=== PATIENT | female | born 1970 | race African-American/Black ===

== ENCOUNTER 2018-03-19 18:21 | Emergency (ER) | payer OTHER ==
[~2018-03-19] VITALS: Ht 170.2 cm; Wt 93.2 kg
[~2018-03-19 18:21] MED LIST: ASPI-1182 PO; ATOR10TA84 PO; CARV3 PO; CIPR-278 PO; FURO40 PO; LISI-661 PO; PARO10OR3 PO; SLOWK8 PO
[2018-03-19] MEDS ORDERED: RIVA10 PO (18:27)
[2018-03-19 18:49] LABS: GLUCOSE,POINT OF CARE 220 MG/DL (70-110)
[2018-03-19] MEDS ORDERED: KETOROLAC TROMETHAMINE 30 MG/ML VIAL IVP ONE (19:15)
[2018-03-19] MEDS ORDERED: LISI-662 PO (19:17)
[2018-03-19] MEDS ORDERED: CARV6 PO (19:17)
[2018-03-19] MEDS ORDERED: PARO20TA24 PO (19:17)
[2018-03-19 19:49] LABS: BASOPHILS % (AUTO) 1.4 % (0.0-2.0); EOSINOPHILS % (AUTO) 5.9 % (1.0-6.0); HEMATOCRIT 36.7 % (36-46); HEMOGLOBIN 12.6 g/dL (12.0-16.0); LYMPHOCYTES % (AUTO) 18.7 % (22.0-44.0); MEAN CORPUSCULAR HEMOGLOBIN 30.7 pg (26.0-34.0); MEAN CORPUSCULAR HGB CONC 34.4 G/dL (31.0-37.0); MEAN CORPUSCULAR VOLUME 89 fL (80-100); MONOCYTES # (AUTO) 1.6 K/uL (0.1-1.0); MONOCYTES % (AUTO) 15.2 % (2.0-9.0); NEUTROPHILS # (AUTO) 6.3 K/uL (1.8-7.7); NEUTROPHILS % (AUTO) 58.8 % (40.0-70.0); PLATELET COUNT (AUTO) 272 K/uL (150-450); RED BLOOD CELL COUNT(AUTO) 4.11 MIL/uL (4.00-5.20); RED CELL DISTRIBUTION WIDTH 15.4 % (11.5-14.5)
[2018-03-19 20:07] LABS: LACTIC ACID 1.8 mmol/L (0.4-2.0)
[2018-03-19] MEDS ORDERED: IPRATROPIUM BROMIDE 0.5 MG/2.5 ML NEB SOLUTION NEB ONE (20:15)
[2018-03-19] MEDS ORDERED: ALBUTEROL SULFATE 2.5 MG/0.5 ML NEB SOLUTION NEB ONE (20:15)
[2018-03-19] MEDS ORDERED: MORPHINE SULFATE 4 MG/ML SYRINGE IVP ONE (20:15)
[2018-03-19] MEDS ORDERED: 0.9% SODIUM CHLORIDE 5 ML NEB SOLUTION NEB ONE (20:15)
[2018-03-19 20:16] LABS: INFLUENZA TYPE A NEGATIVE FOR TYPE A (NEGATIVE); INFLUENZA TYPE B NEGATIVE FOR TYPE B (NEGATIVE)
[2018-03-19 20:16] LABS: CALCIUM, TOTAL 8.3 mg/dL (8.8-10.5); CREATININE 1.43 mg/dL (0.60-1.30); POTASSIUM 3.8 mmol/L (3.5-5.1)
[2018-03-19 20:21] LABS: ALBUMIN 2.7 g/dL (3.4-5.0); BILIRUBIN,TOTAL 0.4 mg/dL (0.1-1.0); TOTAL PROTEIN, SERUM 6.2 g/dL (6.4-8.2)
[2018-03-19 21:19] VITALS: BP 106/69
== END 2018-03-19 22:05 | disposition home or self-care (01) ==
LOC: EMS 18:23
DX: J40 Bronchitis, not specified as acute or chronic (principal); I50.9 Heart failure, unspecified; Z79.899 Other long term (current) drug therapy; Z79.82 Long term (current) use of aspirin
CPT/HCPCS: 36415; 71046; 80053; 82962; 83605; 83880; 84484; 85025; 87040; 87804; 93005; 94640; 96374; 96375; 99284; J1885; J2270

== ENCOUNTER 2019-05-20 13:08 | Inpatient (IN) | payer OTHER ==
[~2019-05-20] VITALS: Ht 170.2 cm; Wt 103.7 kg
[~2019-05-20 13:08] MED LIST changes: +ASPI-1111 PO; -ASPI-1182 PO; -CARV3 PO; +CARV6 PO; -CIPR-278 PO; -LISI-661 PO; +LISI-662 PO; -PARO10OR3 PO; +PARO20TA24 PO; +RIVA10 PO
[2019-05-20] MEDS ORDERED: OMEG-135 PO (13:17)
[2019-05-20] MEDS ORDERED: BUME1TAB34 PO ×2 (13:17→14:08)
[2019-05-20] MEDS ORDERED: METF-960 PO ×2 (13:17→14:08)
[2019-05-20] MEDS ORDERED: IOVERSOL 350 MG/ML 100 ML VIAL ONE (13:26)
[2019-05-20] MEDS ORDERED: SODIUM CHLORIDE 0.9% 0 ML ONE (13:26)
[2019-05-20 13:33] LABS: BASOPHILS % (AUTO) 0.9 % (0.0-2.0); EOSINOPHILS % (AUTO) 4.8 % (1.0-6.0); HEMATOCRIT 46.4 % (36-46); HEMOGLOBIN 15.6 g/dL (12.0-16.0); LYMPHOCYTES # (AUTO) 3.1 K/uL (1.0-4.8); MEAN CORPUSCULAR HGB CONC 33.5 G/dL (31.0-37.0); MEAN CORPUSCULAR VOLUME 87 fL (80-100); MONOCYTES # (AUTO) 0.8 K/uL (0.1-1.0); MONOCYTES % (AUTO) 7.2 % (2.0-9.0); NEUTROPHILS # (AUTO) 6.5 K/uL (1.8-7.7); NEUTROPHILS % (AUTO) 59.1 % (40.0-70.0); PLATELET COUNT (AUTO) 237 K/uL (150-450); RED BLOOD CELL COUNT(AUTO) 5.36 MIL/uL (4.00-5.20); RED CELL DISTRIBUTION WIDTH 14.8 % (11.5-14.5)
[2019-05-20 13:41] LABS: CREATININE 1.48 mg/dL (0.60-1.30); POTASSIUM 4.5 mmol/L (3.5-5.1)
[2019-05-20 13:47] LABS: ALBUMIN 3.3 g/dL (3.4-5.0); BILIRUBIN,TOTAL 0.7 mg/dL (0.1-1.0); TOTAL PROTEIN, SERUM 7.2 g/dL (6.4-8.2)
[2019-05-20 13:53] LABS: PROTHROMBIN TIME 10.4 SEC (9.4-11.6)
[2019-05-20 14:08] LABS: B-TYPE NATRIURETIC PEPTIDE 49 pg/mL (0-100)
[2019-05-20] MEDS ORDERED: SACU1TAB7 PO (14:08)
[2019-05-20] MEDS ORDERED: CARV25 PO (14:08)
[2019-05-20] MEDS ORDERED: ISOS10TA16 PO (14:09)
[2019-05-20] MEDS ORDERED: DIGO125T84 PO (14:09)
[2019-05-20 15:03] LABS: APPEARANCE,URINE TURBID (CLEAR); BILIRUBIN,URINE NEGATIVE (NEGATIVE); GLUCOSE, URINE (UA) >=1000 mg/dL (NEGATIVE); KETONES,URINE NEGATIVE (NEGATIVE); LEUKOCYTE ESTERASE ,URINE SMALL (NEGATIVE); NITRATE,URINE NEGATIVE (NEGATIVE); OCCULT BLOOD,URINE NEGATIVE (NEGATIVE); PH,URINE 5.5 (5.0-8.0); PROTEIN,URINE POS 1+ (NEGATIVE); UROBILINOGEN,URINE 0.2 mg/dL (<=1.0)
[2019-05-20 15:08] LABS: BACTERIA,URINE Moderate /HPF (None Seen); RBC,URINE 0-2 /HPF (0-2); SQUAMOUS EPITHELIAL CELL,UR Many /LPF (None Seen)
[2019-05-20] MEDS ORDERED: SACU1TAB PO (15:09)
[2019-05-20] MEDS ORDERED: FISH1 PO (15:09)
[2019-05-20] MEDS ORDERED: LATA2.5D2 OU (15:09)
[2019-05-20] MEDS ORDERED: ATOR40TA71 PO (15:09)
[2019-05-20 15:12] LABS: AMPHET/METH SCREEN,URINE POSITIVE (NEGATIVE); BARBITURATE SCREEN, URINE NEGATIVE (NEGATIVE); BENZODIAZEPINES SCREEN,URINE NEGATIVE (NEGATIVE); CANNABINOID SCREEN,URINE NEGATIVE (NEGATIVE); COCAINE SCREEN,URINE NEGATIVE (NEGATIVE); METHADONE SCREEN, URINE NEGATIVE (NEGATIVE); OPIATE SCREEN,URINE NEGATIVE (NEGATIVE)
[2019-05-20] MEDS ORDERED: ASPIRIN 325 MG TABLET PO ONE (15:15)
[2019-05-20 15:20] LABS: PHENCYCLIDINE SCREEN,URINE NEGATIVE (NEGATIVE)
[2019-05-20 15:33] LABS: DIGOXIN 0.67 ng/mL (0.90-2.00)
[2019-05-20] MEDS ORDERED: ONDANSETRON HCL 4 MG/2 ML VIAL IVP PRN (16:15)
[2019-05-20] MEDS ORDERED: 0.9% SODIUM CHLORIDE 10 ML SYRINGE IVP PRN (16:15)
[2019-05-20] MEDS ORDERED: ACETAMINOPHEN 325 MG TABLET PO PRN ×2 (16:15→17:00)
[2019-05-20] MEDS ORDERED: LORazepam 1 MG TABLET PO PRN (17:00)
[2019-05-20] MEDS ORDERED: OxyCODONE HCL/ACETAMINOPHEN 5-325 MG TABLET PO PRN (17:00)
[2019-05-20] MEDS ORDERED: DEXTROSE 50%-WATER 25 GM/50 ML SYRINGE IVP PRN (17:00)
[2019-05-20 17:03] VITALS: BP 114/84
[2019-05-20] MEDS: ATORVASTATIN CALCIUM 20 MG TABLET PO SCH (18:05)
[2019-05-20] MEDS: INSULIN LISPRO 100 UNITS/ML SQ PRN ×2 (18:20→21:55)
[2019-05-20] MEDS ORDERED: INFLUENZA VIRUS VACCINE QVS 2019-20 (3YR+)/PF 60 MCG/0.5 ML SYRINGE IM ONE (19:15)
[2019-05-20 19:41] VITALS: BP 122/73
[2019-05-20] MEDS: DOCUSATE SODIUM 100 MG CAPSULE PO SCH (21:29)
[2019-05-20] MEDS: HEPARIN SODIUM,PORCINE 5,000 UNITS/ML VIAL SQ SCH (23:55)
[2019-05-21] VITALS (8 sets, daily range): BP systolic 111–131; BP diastolic 52–69
[2019-05-21 02:27] LABS: GLUCOMETER DEV NAME(LOC) 5N.1; GLUCOSE,POINT OF CARE 171 MG/DL (70-110)
[2019-05-21 02:27] LABS: GLUCOMETER DEV NAME(LOC) 5N.2; GLUCOSE,POINT OF CARE 178 MG/DL (70-110)
[2019-05-21] MEDS: INSULIN LISPRO 100 UNITS/ML SQ PRN ×3 (06:49→18:17)
[2019-05-21 08:04] LABS: GLUCOMETER DEV NAME(LOC) 5N.1; GLUCOSE,POINT OF CARE 165 MG/DL (70-110)
[2019-05-21] MEDS: ASPIRIN 325 MG TABLET PO SCH (08:49)
[2019-05-21] MEDS: HEPARIN SODIUM,PORCINE 5,000 UNITS/ML VIAL SQ SCH ×2 (08:49→16:56)
[2019-05-21] MEDS: FAMOTIDINE 20 MG TABLET PO SCH (08:49)
[2019-05-21] MEDS: ATORVASTATIN CALCIUM 20 MG TABLET PO SCH (08:49)
[2019-05-21] MEDS: DOCUSATE SODIUM 100 MG CAPSULE PO SCH ×2 (08:49→21:13)
[2019-05-21 12:54] LABS: GLUCOMETER DEV NAME(LOC) 5N.2; GLUCOSE,POINT OF CARE 290 MG/DL (70-110)
[2019-05-21 18:06] LABS: GLUCOMETER DEV NAME(LOC) 5N.2; GLUCOSE,POINT OF CARE 216 MG/DL (70-110)
[2019-05-21] MEDS: KETOROLAC TROMETHAMINE 15 MG/ML VIAL IVP PRN (21:21)
[2019-05-21 22:01] LABS: GLUCOMETER DEV NAME(LOC) 5N.2; GLUCOSE,POINT OF CARE 185 MG/DL (70-110)
[2019-05-22] MEDS: HEPARIN SODIUM,PORCINE 5,000 UNITS/ML VIAL SQ SCH ×3 (00:33→15:48)
[2019-05-22 04:59] VITALS: BP 138/76
[2019-05-22 06:40] LABS: GLUCOMETER DEV NAME(LOC) 5N.1; GLUCOSE,POINT OF CARE 155 MG/DL (70-110)
[2019-05-22 07:20] VITALS: BP 106/72
[2019-05-22] MEDS: FAMOTIDINE 20 MG TABLET PO SCH (08:13)
[2019-05-22] MEDS: ATORVASTATIN CALCIUM 20 MG TABLET PO SCH (08:13)
[2019-05-22] MEDS: ASPIRIN 325 MG TABLET PO SCH (08:13)
[2019-05-22] MEDS: DOCUSATE SODIUM 100 MG CAPSULE PO SCH (08:13)
[2019-05-22] MEDS: KETOROLAC TROMETHAMINE 15 MG/ML VIAL IVP PRN (08:14)
[2019-05-22] MEDS ORDERED: LIDOCAINE 5% TRANSDERMAL PATCH TD SCH (09:00)
[2019-05-22 10:50] VITALS: BP 128/73
[2019-05-22] MEDS: INSULIN LISPRO 100 UNITS/ML SQ PRN (11:52)
[2019-05-22] MEDS ORDERED: ASPI1CPM8 PO (15:10)
[2019-05-22 15:33] VITALS: BP 125/65
[2019-05-22 18:45] LABS: GLUCOMETER DEV NAME(LOC) 5N.1; GLUCOSE,POINT OF CARE 209 MG/DL (70-110)
[2019-05-22] MEDS ORDERED: -LIDODERM PATCH NOTE- MISC SCH (21:00)
== END 2019-05-22 16:20 | disposition home or self-care (01) | DRG 54 ==
LOC: EMS 13:12 → 5N 16:33
PROVIDERS: ADMIT Internal Medicine; ATTEND Internal Medicine
DX: G43.109 Migraine with aura, not intractable, without status migrainosus (principal); E44.0 Moderate protein-calorie malnutrition; I42.8 Other cardiomyopathies; E11.65 Type 2 diabetes mellitus with hyperglycemia; I50.9 Heart failure, unspecified; I11.0 Hypertensive heart disease with heart failure; F15.10 Other stimulant abuse, uncomplicated; I34.0 Nonrheumatic mitral (valve) insufficiency; Z91.14 Patient's other noncompliance with medication regimen; Z68.35 Body mass index [BMI] 35.0-35.9, adult; Z87.891 Personal history of nicotine dependence; Z95.2 Presence of prosthetic heart valve
CPT/HCPCS: 82947; 86850; 86900; 86901; 87086; 92523; 93005; 93306; 93880; 97116; 97161; 97165; 97530; 97535; 99291; G0480; J1644; J1885; J7050

== ENCOUNTER 2021-02-11 11:31 | Emergency (ER) | payer OTHER ==
[~2021-02-11] VITALS: Ht 170.2 cm; Wt 95.5 kg
[~2021-02-11 11:31] MED LIST changes: -ASPI-1111 PO; +ASPI-1444 PO; +ASPI1CPM8 PO; -ATOR10TA84 PO; +ATOR40TA71 PO; +BUME1TAB34 PO; +CARV25 PO; -CARV6 PO; +DIGO125T84 PO; +FISH1 PO; -FURO40 PO; +ISOS10TA16 PO; +LATA2.5D14 OU; -LISI-662 PO; +METF-1211 PO; -PARO20TA24 PO; -RIVA10 PO; +SACU1TAB PO; -SLOWK8 PO
[2021-02-11] MEDS ORDERED: LORA10TA7 PO (11:59)
[2021-02-11 12:39] LABS: BASOPHILS % (AUTO) 0.9 % (0.0-2.0); EOSINOPHILS % (AUTO) 3.3 % (1.0-6.0); HEMATOCRIT 43.3 % (36-46); HEMOGLOBIN 14.5 g/dL (12.0-16.0); LYMPHOCYTES # (AUTO) 2.4 K/uL (1.0-4.8); LYMPHOCYTES % (AUTO) 24.3 % (22.0-44.0); MEAN CORPUSCULAR HEMOGLOBIN 29.3 pg (26.0-34.0); MEAN CORPUSCULAR HGB CONC 33.5 G/dL (31.0-37.0); MEAN CORPUSCULAR VOLUME 88 fL (80-100); MONOCYTES # (AUTO) 0.6 K/uL (0.1-1.0); MONOCYTES % (AUTO) 6.1 % (2.0-9.0); NEUTROPHILS # (AUTO) 6.5 K/uL (1.8-7.7); NEUTROPHILS % (AUTO) 65.4 % (40.0-70.0); PLATELET COUNT (AUTO) 213 K/uL (150-450); RED BLOOD CELL COUNT(AUTO) 4.95 MIL/uL (4.00-5.20); RED CELL DISTRIBUTION WIDTH 14.6 % (11.5-14.5)
[2021-02-11 13:07] LABS: CALCIUM, TOTAL 8.9 mg/dL (8.8-10.5); CREATININE 1.25 mg/dL (0.60-1.30); POTASSIUM 4.1 mmol/L (3.5-5.1)
[2021-02-11 13:13] LABS: ALBUMIN 3.1 g/dL (3.4-5.0); BILIRUBIN,TOTAL 0.6 mg/dL (0.1-1.0); TOTAL PROTEIN, SERUM 6.6 g/dL (6.4-8.2)
[2021-02-11 14:54] VITALS: BP 118/74
== END 2021-02-11 16:09 | disposition home or self-care (01) ==
LOC: EMS 11:31
DX: R07.89 Other chest pain (principal); R06.02 Shortness of breath; I11.0 Hypertensive heart disease with heart failure; I50.9 Heart failure, unspecified; E78.00 Pure hypercholesterolemia, unspecified; E11.9 Type 2 diabetes mellitus without complications; Z87.891 Personal history of nicotine dependence; Z79.82 Long term (current) use of aspirin; Z79.84 Long term (current) use of oral hypoglycemic drugs
CPT/HCPCS: 71045; 80053; 84484; 85025; 93005; 99285; 36415-L1; 36415-TC